=== PATIENT | male | born 1945 | race Caucasian/White ===

== ENCOUNTER 2018-06-17 16:52 | Inpatient (IN) ==
[2018-06-17 17:35] LABS: Basophils % 0.4 % (0.0-0.8); Eosinophils # 0.1 10*3/uL (0.0-0.87); Eosinophils % 1.1 % (0.00-10.9); Hematocrit 29.3 VOL% (42.0-52.0); Hemoglobin 9.7 GM/DL (14.0-18.0); Immature Granulocytes % 0.4 %; Immature Granulocytes Absolute 0.04 #; Lymphocytes # 0.7 10*3/uL (1.4-4.0); Lymphocytes % 6.9 % (21.2-54.2); Mean Corpuscular HGB Conc 33.1 GM/DL (32-36); Mean Corpuscular Hemoglobin 29 PG (27-34); Mean Corpuscular Volume 86.7 FL (87-102); Mean Platelet Volume 9.7 FL (9.6-12.0); Monocytes # 0.9 10*3/uL (0.11-0.8); Monocytes % 8.7 % (1.7-12.7); Neutrophils # 8.2 10*3/uL (1.4-7.4); Neutrophils % 82.5 % (38.7-73.9); Platelet Count 232 T/CUMM (130-400); Red Blood Count 3.38 MC/CUMM (3.8-5.5); Red Cell Distribution Width 13.6 % (9.3-17.3); White Blood Count 9.9 T/CUMM (4-12)
[2018-06-17 17:52] LABS: Apearance,Urine CLEAR (Clear); Bacteria,Urine Occasional /HPF (Few); Bilirubin,Urine Negative (Negative); Blood, Urine Negative (Negative); Glucose,Urine (UA) Negative (Negative); Ketones,Urine Negative (Negative); Mucus,Urine Occasional /LPF (Occasional); Nitrite,Urine Negative (Negative); Protein,Urine Negative; RBC,Urine <1 /HPF (0-4); Squamous Epithelial Cell,Urine Occasional /HPF (0-10); Urine Color Yellow (Yellow); Urine Specific Gravity 1.013 (1.001-1.035); Urine Urobilinogen < 2.0 EU/DL (0.2-1.0); WBC,Urine 2 /HPF (0-6)
[2018-06-17 17:56] LABS: Barbiturates Screen,Urine Negative (Negative); Benzodiazepines Screen,Urine Negative (Negative); Cannabinoid Screen,Urine Negative (Negative); Opiate Screen,Urine Negative (Negative); Phencyclidine Screen,Urine Negative (Negative)
[2018-06-17 17:57] LABS: Albumin 2.9 G/DL (3.4-5.0); Bilirubin,Total 1.1 MG/DL (0.2-1.0); Calcium 8.6 MG/DL (8.5-10.1); Osmolality,Calculated 285.7 MOS/KG (273-304); Potassium 4.3 MMOL/L (3.5-5.1); Thyroid Stimulating Hormone 1.51 uIU/ml (0.358-3.74); Total Protein 6.8 G/DL (6.4-8.3)
[2018-06-17] MEDS ORDERED: ONDANSETRON 4 MG/2 ML VIAL IV PRN ×2 (21:49→21:58)
[2018-06-17] MEDS ORDERED: POLYETHYLENE GLYCOL POWDER 17 GM PACK PO PRN (21:58)
[2018-06-17] MEDS ORDERED: ALUMINUM/MAGNES/SIMETH MAX STR 30 ML UDCUP PO PRN (21:58)
[2018-06-17] MEDS ORDERED: BISACODYL 10 MG SUPP RECTAL PRN (21:58)
[2018-06-17] MEDS ORDERED: SKIN HEALING OINT (AQUAPHOR) 50 GM TUBE TOP PRN (21:58)
[2018-06-17] MEDS ORDERED: ONDANSETRON 4 MG TABLET PO PRN (21:58)
[2018-06-17] MEDS ORDERED: ZINC OXIDE PASTE 113 GM TUBE TOP PRN (21:58)
[2018-06-18] MEDS ORDERED: ZIPRASIDONE 20 MG/1 ML VIAL IM ONE (02:30)
[2018-06-18] MEDS: SODIUM CHLORIDE 0.9% 1,000 ML IV SCH ×2 (03:47→13:59)
[2018-06-18 06:31] LABS: Basophils # 0.1 10*3/uL (0.0-0.2); Basophils % 0.5 % (0.0-0.8); Eosinophils # 0.2 10*3/uL (0.0-0.87); Eosinophils % 1.9 % (0.00-10.9); Hemoglobin 9.7 GM/DL (14.0-18.0); Immature Granulocytes % 0.5 %; Immature Granulocytes Absolute 0.05 #; Lymphocytes # 0.7 10*3/uL (1.4-4.0); Lymphocytes % 6.2 % (21.2-54.2); Mean Corpuscular HGB Conc 31.3 GM/DL (32-36); Mean Corpuscular Hemoglobin 28 PG (27-34); Mean Corpuscular Volume 89.1 FL (87-102); Mean Platelet Volume 9.7 FL (9.6-12.0); Monocytes % 9.2 % (1.7-12.7); Neutrophils # 8.9 10*3/uL (1.4-7.4); Neutrophils % 81.7 % (38.7-73.9); Platelet Count 192 T/CUMM (130-400); Red Blood Count 3.48 MC/CUMM (3.8-5.5); Red Cell Distribution Width 13.4 % (9.3-17.3); White Blood Count 10.9 T/CUMM (4-12)
[2018-06-18 06:43] LABS: INR 1.8; PT Patient Result 18.2 SECS
[2018-06-18 07:09] LABS: Calcium 8.3 MG/DL (8.5-10.1); Osmolality,Calculated 282.7 MOS/KG (273-304); Potassium 4.3 MMOL/L (3.5-5.1)
[2018-06-18] MEDS: PANTOPRAZOLE 40 MG TABLET PO SCH (09:36)
[2018-06-18] MEDS: CLOPIDOGREL 75 MG TABLET PO SCH (09:36)
[2018-06-18] MEDS: MUPIROCIN 2% OINT 22 GM TUBE TOP SCH (09:37)
[2018-06-18] MEDS: SILVER SULFADIAZINE 1% CREAM 25 GM TUBE TOP SCH (10:54)
[2018-06-18] MEDS: LORazepam 2 MG/1 ML VIAL IV PRN (14:56)
[2018-06-18] MEDS ORDERED: WARFARIN 5 MG TABLET PO SCH (18:00)
[2018-06-18] MEDS ORDERED: WARFARIN 3 MG TABLET PO SCH (18:00)
[2018-06-19] MEDS: LORazepam 2 MG/1 ML VIAL IV PRN ×3 (01:24→13:52)
[2018-06-19 06:30] LABS: Basophils % 0.2 % (0.0-0.8); Eosinophils % 0.2 % (0.00-10.9); Hematocrit 30.5 VOL% (42.0-52.0); Hemoglobin 9.8 GM/DL (14.0-18.0); Immature Granulocytes % 0.7 %; Immature Granulocytes Absolute 0.13 #; Lymphocytes # 0.2 10*3/uL (1.4-4.0); Lymphocytes % 1.1 % (21.2-54.2); Mean Corpuscular HGB Conc 32.1 GM/DL (32-36); Mean Corpuscular Hemoglobin 28 PG (27-34); Mean Corpuscular Volume 87.1 FL (87-102); Mean Platelet Volume 9.9 FL (9.6-12.0); Monocytes # 1.2 10*3/uL (0.11-0.8); Monocytes % 6.8 % (1.7-12.7); Neutrophils # 15.9 10*3/uL (1.4-7.4); Platelet Count 174 T/CUMM (130-400); Red Cell Distribution Width 13.5 % (9.3-17.3); White Blood Count 17.5 T/CUMM (4-12)
[2018-06-19 06:34] LABS: INR 1.7; PT Patient Result 17.2 SECS
[2018-06-19 06:53] LABS: Band Neutrophils 3 % (0-10); Eosinophils 1 % (0-10); Hypochromasia 1+; Lymphocytes 1 % (20-55); Platelet Estimate Adequate; Segmented Neutrophils 86 % (50-85); Total Cells Counted 100
[2018-06-19 06:58] LABS: Calcium 8.4 MG/DL (8.5-10.1); Osmolality,Calculated 288.1 MOS/KG (273-304)
[2018-06-19] MEDS: AMPICILLIN INJ 2,000 MG in SODIUM CHLORIDE 0.9% 100 ML IV SCH ×3 (10:00→23:13)
[2018-06-19] MEDS: PANTOPRAZOLE 40 MG TABLET PO SCH (10:06)
[2018-06-19] MEDS: MUPIROCIN 2% OINT 22 GM TUBE TOP SCH (10:08)
[2018-06-19] MEDS: cefTRIAXone 2,000 MG in SYRINGE 1 EACH IV SCH ×2 (10:11→22:29)
[2018-06-19] MEDS: CLOPIDOGREL 75 MG TABLET PO SCH (10:16)
[2018-06-19] MEDS ORDERED: ZINC OXIDE PASTE 113 GM TUBE TOP SCH (14:30)
[2018-06-19] MEDS: SILVER SULFADIAZINE 1% CREAM 25 GM TUBE TOP SCH (17:03)
[2018-06-19] MEDS: ACYCLOVIR INJ 750 MG in SODIUM CHLORIDE 0.9% 250 ML IV SCH (17:41)
[2018-06-19] MEDS: WARFARIN 10 MG TABLET PO SCH (18:02)
[2018-06-19] MEDS: SODIUM CHLORIDE 0.9% 1,000 ML IV SCH ×2 (22:17)
[2018-06-20] MEDS: ACYCLOVIR INJ 750 MG in SODIUM CHLORIDE 0.9% 250 ML IV SCH ×3 (02:10→18:00)
[2018-06-20] MEDS: LORazepam 2 MG/1 ML VIAL IV PRN ×2 (02:21→22:11)
[2018-06-20] MEDS: AMPICILLIN INJ 2,000 MG in SODIUM CHLORIDE 0.9% 100 ML IV SCH ×4 (04:47→22:49)
[2018-06-20 04:49] LABS: INR 2.1
[2018-06-20 04:52] LABS: PT Patient Result 21.5 SECS
[2018-06-20] MEDS: SODIUM CHLORIDE 0.9% 1,000 ML IV SCH ×2 (05:35→15:31)
[2018-06-20] MEDS: CLOPIDOGREL 75 MG TABLET PO SCH (09:26)
[2018-06-20] MEDS: PANTOPRAZOLE 40 MG TABLET PO SCH (09:26)
[2018-06-20] MEDS: CARVEDILOL 12.5 MG TABLET PO SCH (09:30)
[2018-06-20] MEDS: cefTRIAXone 2,000 MG in SYRINGE 1 EACH IV SCH ×2 (10:39→22:09)
[2018-06-20] MEDS: DILTIAZEM 60 MG TABLET PO SCH ×3 (12:32→22:06)
[2018-06-20 13:06] LABS: Troponin I 0.023 NG/ML (0.00-0.045)
[2018-06-20] MEDS: SILVER SULFADIAZINE 1% CREAM 25 GM TUBE TOP SCH (13:55)
[2018-06-20] MEDS: MUPIROCIN 2% OINT 22 GM TUBE TOP SCH (13:55)
[2018-06-20] MEDS ORDERED: DILTIAZEM 90 MG TABLET PO SCH (15:00)
[2018-06-20 16:45] LABS: Troponin I 0.019 NG/ML (0.00-0.045)
[2018-06-20] MEDS: WARFARIN 10 MG TABLET PO SCH (18:00)
[2018-06-20 19:13] LABS: Troponin I 0.019 NG/ML (0.00-0.045)
[2018-06-20] MEDS: CARVEDILOL 25 MG TABLET PO SCH (22:09)
[2018-06-21] MEDS: SODIUM CHLORIDE 0.9% 1,000 ML IV SCH ×4 (01:21→14:06)
[2018-06-21] MEDS: ACYCLOVIR INJ 750 MG in SODIUM CHLORIDE 0.9% 250 ML IV SCH ×2 (02:34→10:26)
[2018-06-21 04:04] LABS: INR 4.7
[2018-06-21 04:08] LABS: Calcium 7.8 MG/DL (8.5-10.1)
[2018-06-21 04:09] LABS: Basophils % 0.2 % (0.0-0.8); Eosinophils # 0.3 10*3/uL (0.0-0.87); Hematocrit 30.6 VOL% (42.0-52.0); Hemoglobin 9.1 GM/DL (14.0-18.0); Immature Granulocytes % 0.5 %; Immature Granulocytes Absolute 0.03 #; Lymphocytes # 0.3 10*3/uL (1.4-4.0); Mean Corpuscular HGB Conc 29.7 GM/DL (32-36); Mean Corpuscular Hemoglobin 28 PG (27-34); Mean Corpuscular Volume 94.4 FL (87-102); Mean Platelet Volume 10.1 FL (9.6-12.0); Monocytes # 0.5 10*3/uL (0.11-0.8); Monocytes % 8.2 % (1.7-12.7); Neutrophils # 4.3 10*3/uL (1.4-7.4); Neutrophils % 79.1 % (38.7-73.9); Osmolality,Calculated 282.4 MOS/KG (273-304); Platelet Count 106 T/CUMM (130-400); Potassium 3.5 MMOL/L (3.5-5.1); Red Blood Count 3.24 MC/CUMM (3.8-5.5); Red Cell Distribution Width 13.7 % (9.3-17.3); White Blood Count 5.5 T/CUMM (4-12)
[2018-06-21 04:12] LABS: PT Patient Result 47.1 SECS
[2018-06-21] MEDS: AMPICILLIN INJ 2,000 MG in SODIUM CHLORIDE 0.9% 100 ML IV SCH ×2 (04:44→10:15)
[2018-06-21 06:08] LABS: Risk Ratio 5.47; VLDL CHOLESTEROL 35.6 MG/DL
[2018-06-21 06:23] LABS: Calcium 7.8 MG/DL (8.5-10.1); Osmolality,Calculated 286.1 MOS/KG (273-304); Potassium 3.5 MMOL/L (3.5-5.1)
[2018-06-21] MEDS: CLOPIDOGREL 75 MG TABLET PO SCH (09:31)
[2018-06-21] MEDS: DILTIAZEM 60 MG TABLET PO SCH ×4 (09:31→23:15)
[2018-06-21] MEDS: PANTOPRAZOLE 40 MG TABLET PO SCH (09:31)
[2018-06-21] MEDS: CARVEDILOL 12.5 MG TABLET PO SCH (09:33)
[2018-06-21] MEDS: SILVER SULFADIAZINE 1% CREAM 25 GM TUBE TOP SCH (09:34)
[2018-06-21] MEDS: MUPIROCIN 2% OINT 22 GM TUBE TOP SCH (09:34)
[2018-06-21] MEDS: cefTRIAXone 2,000 MG in SYRINGE 1 EACH IV SCH ×2 (09:40→14:09)
[2018-06-21] MEDS ORDERED: VANCOMYCIN INJ 1,000 MG in SODIUM CHLORIDE 0.9% 250 ML IV SCH (11:00)
[2018-06-21] MEDS ORDERED: TUBERCULIN SKIN TEST 0.1 ML SYRINGE INTRADERM ONE (11:20)
[2018-06-21] MEDS: LORazepam 2 MG/1 ML VIAL IV PRN (20:15)
[2018-06-21] MEDS: CARVEDILOL 25 MG TABLET PO SCH (23:16)
[2018-06-21] MEDS ORDERED: HALOPERIDOL 5 MG/ML AMP IM ONE (23:59)
[2018-06-22] MEDS: SODIUM CHLORIDE 0.9% 1,000 ML IV SCH ×2 (04:41→14:51)
[2018-06-22 05:07] LABS: Basophils % 0.2 % (0.0-0.8); Eosinophils # 0.4 10*3/uL (0.0-0.87); Eosinophils % 5.8 % (0.00-10.9); Hematocrit 26.1 VOL% (42.0-52.0); Hemoglobin 8.3 GM/DL (14.0-18.0); Immature Granulocytes % 0.8 %; Immature Granulocytes Absolute 0.05 #; Lymphocytes # 0.6 10*3/uL (1.4-4.0); Lymphocytes % 9.1 % (21.2-54.2); Mean Corpuscular HGB Conc 31.8 GM/DL (32-36); Mean Corpuscular Hemoglobin 28 PG (27-34); Mean Corpuscular Volume 88.5 FL (87-102); Mean Platelet Volume 10.5 FL (9.6-12.0); Monocytes # 0.6 10*3/uL (0.11-0.8); Monocytes % 9.4 % (1.7-12.7); Neutrophils # 4.6 10*3/uL (1.4-7.4); Neutrophils % 74.7 % (38.7-73.9); Platelet Count 122 T/CUMM (130-400); Red Blood Count 2.95 MC/CUMM (3.8-5.5); Red Cell Distribution Width 13.5 % (9.3-17.3); White Blood Count 6.2 T/CUMM (4-12)
[2018-06-22 05:25] LABS: PT Patient Result 54.1 SECS
[2018-06-22 05:28] LABS: INR 5.5
[2018-06-22 05:52] LABS: Calcium 7.9 MG/DL (8.5-10.1); Osmolality,Calculated 285.8 MOS/KG (273-304); Potassium 3.6 MMOL/L (3.5-5.1)
[2018-06-22] MEDS: LORazepam 2 MG/1 ML VIAL IV PRN (05:58)
[2018-06-22] MEDS: MUPIROCIN 2% OINT 22 GM TUBE TOP SCH (11:03)
[2018-06-22] MEDS: SILVER SULFADIAZINE 1% CREAM 25 GM TUBE TOP SCH (11:04)
[2018-06-22] MEDS: CARVEDILOL 12.5 MG TABLET PO SCH (12:58)
[2018-06-22] MEDS: DILTIAZEM 60 MG TABLET PO SCH ×2 (12:58)
[2018-06-22] MEDS: PANTOPRAZOLE 40 MG TABLET PO SCH (12:59)
[2018-06-22] MEDS: CLOPIDOGREL 75 MG TABLET PO SCH (12:59)
[2018-06-22] MEDS: cefTRIAXone 2,000 MG in SYRINGE 1 EACH IV SCH (13:15)
[2018-06-22] MEDS ORDERED: DILTIAZEM 60 MG TABLET PO ONE (13:50)
[2018-06-22] MEDS: DILTIAZEM CD 180 MG CAPSULE PO SCH (21:19)
[2018-06-22] MEDS: CARVEDILOL 25 MG TABLET PO SCH (21:19)
[2018-06-23 04:45] LABS: Basophils % 0.3 % (0.0-0.8); Eosinophils # 0.3 10*3/uL (0.0-0.87); Hematocrit 29.9 VOL% (42.0-52.0); Hemoglobin 9.9 GM/DL (14.0-18.0); Immature Granulocytes % 1.1 %; Immature Granulocytes Absolute 0.08 #; Lymphocytes # 0.7 10*3/uL (1.4-4.0); Lymphocytes % 8.9 % (21.2-54.2); Mean Corpuscular HGB Conc 33.1 GM/DL (32-36); Mean Corpuscular Hemoglobin 28 PG (27-34); Mean Corpuscular Volume 85.7 FL (87-102); Mean Platelet Volume 10.2 FL (9.6-12.0); Monocytes # 0.6 10*3/uL (0.11-0.8); Monocytes % 8.5 % (1.7-12.7); Neutrophils # 5.6 10*3/uL (1.4-7.4); Neutrophils % 77.2 % (38.7-73.9); Platelet Count 130 T/CUMM (130-400); Red Blood Count 3.49 MC/CUMM (3.8-5.5); Red Cell Distribution Width 13.5 % (9.3-17.3); White Blood Count 7.3 T/CUMM (4-12)
[2018-06-23 05:04] LABS: Osmolality,Calculated 277.3 MOS/KG (273-304); Potassium 3.2 MMOL/L (3.5-5.1)
[2018-06-23 05:10] LABS: PT Patient Result 52.2 SECS
[2018-06-23 05:11] LABS: INR 5.3
[2018-06-23] MEDS: PANTOPRAZOLE 40 MG TABLET PO SCH (10:41)
[2018-06-23] MEDS: DILTIAZEM CD 180 MG CAPSULE PO SCH ×2 (10:42→22:31)
[2018-06-23] MEDS: CLOPIDOGREL 75 MG TABLET PO SCH (10:42)
[2018-06-23] MEDS: CARVEDILOL 25 MG TABLET PO SCH ×2 (10:42→22:25)
[2018-06-23] MEDS: cefTRIAXone 2,000 MG in SYRINGE 1 EACH IV SCH (14:19)
[2018-06-23] MEDS: VANCOMYCIN INJ 1,000 MG in SODIUM CHLORIDE 0.9% 250 ML IV SCH ×2 (14:23→22:25)
[2018-06-23] MEDS: SILVER SULFADIAZINE 1% CREAM 25 GM TUBE TOP SCH (15:29)
[2018-06-23] MEDS: MUPIROCIN 2% OINT 22 GM TUBE TOP SCH (15:31)
[2018-06-23] MEDS: BISOPROLOL 5 MG TABLET PO SCH (22:24)
[2018-06-24 02:50] LABS: Basophils % 0.1 % (0.0-0.8); Eosinophils # 0.3 10*3/uL (0.0-0.87); Eosinophils % 3.1 % (0.00-10.9); Hematocrit 28.3 VOL% (42.0-52.0); Hemoglobin 9.3 GM/DL (14.0-18.0); Immature Granulocytes % 1.3 %; Immature Granulocytes Absolute 0.11 #; Lymphocytes % 12.5 % (21.2-54.2); Mean Corpuscular HGB Conc 32.9 GM/DL (32-36); Mean Corpuscular Hemoglobin 28 PG (27-34); Mean Platelet Volume 10.4 FL (9.6-12.0); Monocytes # 0.8 10*3/uL (0.11-0.8); Monocytes % 9.1 % (1.7-12.7); Neutrophils # 6.1 10*3/uL (1.4-7.4); Neutrophils % 73.9 % (38.7-73.9); Platelet Count 155 T/CUMM (130-400); Red Blood Count 3.33 MC/CUMM (3.8-5.5); Red Cell Distribution Width 13.6 % (9.3-17.3); White Blood Count 8.3 T/CUMM (4-12)
[2018-06-24 03:03] LABS: PT Patient Result 63.5 SECS
[2018-06-24 03:04] LABS: INR 6.4
[2018-06-24 03:18] LABS: Osmolality,Calculated 281.1 MOS/KG (273-304)
[2018-06-24 03:26] LABS: Osmolality,Calculated 281.1 MOS/KG (273-304); Potassium 3.1 MMOL/L (3.5-5.1)
[2018-06-24] MEDS: VANCOMYCIN INJ 1,000 MG in SODIUM CHLORIDE 0.9% 250 ML IV SCH ×2 (06:37→15:49)
[2018-06-24] MEDS: POTASSIUM CHLORIDE 20 MEQ TABLET PO PRN ×4 (09:19→17:20)
[2018-06-24] MEDS: PANTOPRAZOLE 40 MG TABLET PO SCH (09:19)
[2018-06-24] MEDS: CARVEDILOL 25 MG TABLET PO SCH ×2 (09:19→20:40)
[2018-06-24] MEDS: CLOPIDOGREL 75 MG TABLET PO SCH (09:19)
[2018-06-24] MEDS: BISOPROLOL 5 MG TABLET PO SCH ×2 (09:19→20:40)
[2018-06-24] MEDS: MUPIROCIN 2% OINT 22 GM TUBE TOP SCH (09:20)
[2018-06-24] MEDS: SILVER SULFADIAZINE 1% CREAM 25 GM TUBE TOP SCH (09:20)
[2018-06-24] MEDS: DILTIAZEM CD 180 MG CAPSULE PO SCH ×2 (09:20→20:40)
[2018-06-24] MEDS: cefTRIAXone 2,000 MG in SYRINGE 1 EACH IV SCH (14:50)
[2018-06-25] MEDS: VANCOMYCIN INJ 1,000 MG in SODIUM CHLORIDE 0.9% 250 ML IV SCH ×3 (01:29→17:30)
[2018-06-25 04:30] LABS: Basophils % 0.3 % (0.0-0.8); Eosinophils # 0.2 10*3/uL (0.0-0.87); Eosinophils % 2.6 % (0.00-10.9); Hematocrit 28.3 VOL% (42.0-52.0); Hemoglobin 9.1 GM/DL (14.0-18.0); Immature Granulocytes % 1.4 %; Immature Granulocytes Absolute 0.12 #; Lymphocytes # 0.8 10*3/uL (1.4-4.0); Lymphocytes % 9.3 % (21.2-54.2); Mean Corpuscular HGB Conc 32.2 GM/DL (32-36); Mean Corpuscular Hemoglobin 28 PG (27-34); Mean Corpuscular Volume 88.2 FL (87-102); Mean Platelet Volume 10.4 FL (9.6-12.0); Monocytes # 0.8 10*3/uL (0.11-0.8); Monocytes % 9.6 % (1.7-12.7); Neutrophils # 6.6 10*3/uL (1.4-7.4); Neutrophils % 76.8 % (38.7-73.9); Platelet Count 173 T/CUMM (130-400); Red Blood Count 3.21 MC/CUMM (3.8-5.5); Red Cell Distribution Width 13.7 % (9.3-17.3); White Blood Count 8.6 T/CUMM (4-12)
[2018-06-25 04:44] LABS: INR 2.9
[2018-06-25 04:46] LABS: PT Patient Result 29.7 SECS
[2018-06-25 04:59] LABS: Calcium 7.8 MG/DL (8.5-10.1); Osmolality,Calculated 284.8 MOS/KG (273-304); Potassium 3.7 MMOL/L (3.5-5.1)
[2018-06-25] MEDS: DILTIAZEM CD 180 MG CAPSULE PO SCH ×2 (10:10→21:05)
[2018-06-25] MEDS: CARVEDILOL 25 MG TABLET PO SCH ×2 (10:11→21:05)
[2018-06-25] MEDS: CLOPIDOGREL 75 MG TABLET PO SCH (10:11)
[2018-06-25] MEDS: PANTOPRAZOLE 40 MG TABLET PO SCH (10:12)
[2018-06-25] MEDS: MUPIROCIN 2% OINT 22 GM TUBE TOP SCH (10:12)
[2018-06-25] MEDS: SILVER SULFADIAZINE 1% CREAM 25 GM TUBE TOP SCH (10:12)
[2018-06-25] MEDS: BISOPROLOL 5 MG TABLET PO SCH ×2 (10:12→21:05)
[2018-06-25] MEDS: cefTRIAXone 2,000 MG in SYRINGE 1 EACH IV SCH (13:26)
[2018-06-25] MEDS ORDERED: MAGNESIUM SULF RIDER 2 GM in PREMIX 1 EACH IV ONE (20:51)
[2018-06-25] MEDS: MAGNESIUM CHLORIDE 64 MG TABLET PO SCH (21:13)
[2018-06-25] MEDS: LORazepam 2 MG/1 ML VIAL IV PRN (21:13)
[2018-06-26] MEDS: VANCOMYCIN INJ 1,000 MG in SODIUM CHLORIDE 0.9% 250 ML IV SCH ×3 (02:54→17:53)
[2018-06-26 04:03] LABS: Basophils % 0.4 % (0.0-0.8); Eosinophils # 0.2 10*3/uL (0.0-0.87); Eosinophils % 2.4 % (0.00-10.9); Hematocrit 30.5 VOL% (42.0-52.0); Hemoglobin 9.9 GM/DL (14.0-18.0); Immature Granulocytes % 1.5 %; Immature Granulocytes Absolute 0.12 #; Lymphocytes # 0.8 10*3/uL (1.4-4.0); Lymphocytes % 10.3 % (21.2-54.2); Mean Corpuscular HGB Conc 32.5 GM/DL (32-36); Mean Corpuscular Hemoglobin 28 PG (27-34); Mean Corpuscular Volume 86.6 FL (87-102); Mean Platelet Volume 10.1 FL (9.6-12.0); Monocytes # 0.9 10*3/uL (0.11-0.8); Monocytes % 11.7 % (1.7-12.7); Neutrophils # 5.8 10*3/uL (1.4-7.4); Neutrophils % 73.7 % (38.7-73.9); Platelet Count 161 T/CUMM (130-400); Red Blood Count 3.52 MC/CUMM (3.8-5.5); White Blood Count 7.8 T/CUMM (4-12)
[2018-06-26 04:19] LABS: INR 1.8; PT Patient Result 18.4 SECS
[2018-06-26 04:22] LABS: Calcium 8.6 MG/DL (8.5-10.1); Osmolality,Calculated 281.1 MOS/KG (273-304); Potassium 3.4 MMOL/L (3.5-5.1)
[2018-06-26] MEDS ORDERED: DILTIAZEM CD 180 MG CAPSULE PO SCH (10:06)
[2018-06-26] MEDS: PANTOPRAZOLE 40 MG TABLET PO SCH (10:09)
[2018-06-26] MEDS: MAGNESIUM CHLORIDE 64 MG TABLET PO SCH ×2 (10:09→20:58)
[2018-06-26] MEDS: POTASSIUM CHLORIDE 20 MEQ TABLET PO PRN (10:10)
[2018-06-26] MEDS: CLOPIDOGREL 75 MG TABLET PO SCH (10:10)
[2018-06-26] MEDS: CARVEDILOL 25 MG TABLET PO SCH ×2 (10:10→20:57)
[2018-06-26] MEDS: BISOPROLOL 5 MG TABLET PO SCH (10:15)
[2018-06-26] MEDS: DILTIAZEM CD 180 MG CAPSULE PO SCH (10:43)
[2018-06-26] MEDS: DILTIAZEM CD 240 MG CAPSULE PO SCH ×2 (10:58→20:58)
[2018-06-26] MEDS: SILVER SULFADIAZINE 1% CREAM 25 GM TUBE TOP SCH (14:12)
[2018-06-26] MEDS: cefTRIAXone 2,000 MG in SYRINGE 1 EACH IV SCH (14:12)
[2018-06-26] MEDS: MUPIROCIN 2% OINT 22 GM TUBE TOP SCH (14:12)
[2018-06-26] MEDS: ACETAMINOPHEN 325 MG TABLET PO PRN (17:53)
[2018-06-26] MEDS ORDERED: WARFARIN 2.5 MG TABLET PO SCH (18:00)
[2018-06-26] MEDS: WARFARIN 2 MG TABLET PO SCH (18:18)
[2018-06-27 05:11] LABS: Basophils % 0.5 % (0.0-0.8); Eosinophils # 0.2 10*3/uL (0.0-0.87); Eosinophils % 1.7 % (0.00-10.9); Hematocrit 32.1 VOL% (42.0-52.0); Hemoglobin 10.6 GM/DL (14.0-18.0); Immature Granulocytes % 1.4 %; Immature Granulocytes Absolute 0.12 #; Lymphocytes # 1.1 10*3/uL (1.4-4.0); Lymphocytes % 12.5 % (21.2-54.2); Mean Corpuscular Hemoglobin 29 PG (27-34); Mean Corpuscular Volume 87.2 FL (87-102); Mean Platelet Volume 10.1 FL (9.6-12.0); Monocytes % 11.1 % (1.7-12.7); Neutrophils # 6.3 10*3/uL (1.4-7.4); Neutrophils % 72.8 % (38.7-73.9); Platelet Count 187 T/CUMM (130-400); Red Blood Count 3.68 MC/CUMM (3.8-5.5); Red Cell Distribution Width 14.3 % (9.3-17.3); White Blood Count 8.6 T/CUMM (4-12)
[2018-06-27 05:19] LABS: INR 1.5; PT Patient Result 15.4 SECS
[2018-06-27 05:34] LABS: Calcium 8.6 MG/DL (8.5-10.1); Potassium 3.5 MMOL/L (3.5-5.1)
[2018-06-27] MEDS: VANCOMYCIN INJ 1,000 MG in SODIUM CHLORIDE 0.9% 250 ML IV SCH ×2 (05:40→18:09)
[2018-06-27] MEDS: MAGNESIUM CHLORIDE 64 MG TABLET PO SCH ×2 (09:13→20:56)
[2018-06-27] MEDS: DILTIAZEM CD 240 MG CAPSULE PO SCH ×2 (09:14→20:56)
[2018-06-27] MEDS: CARVEDILOL 25 MG TABLET PO SCH ×2 (09:14→20:55)
[2018-06-27] MEDS: PANTOPRAZOLE 40 MG TABLET PO SCH (09:14)
[2018-06-27] MEDS: POTASSIUM CHLORIDE 20 MEQ TABLET PO PRN (09:14)
[2018-06-27] MEDS: CLOPIDOGREL 75 MG TABLET PO SCH (09:14)
[2018-06-27] MEDS: MUPIROCIN 2% OINT 22 GM TUBE TOP SCH (14:03)
[2018-06-27] MEDS: SILVER SULFADIAZINE 1% CREAM 25 GM TUBE TOP SCH (14:03)
[2018-06-27] MEDS: cefTRIAXone 2,000 MG in SYRINGE 1 EACH IV SCH (14:12)
[2018-06-27] MEDS: ACETAMINOPHEN 325 MG TABLET PO PRN (16:31)
[2018-06-27] MEDS: WARFARIN 2 MG TABLET PO SCH (18:08)
[2018-06-28 03:06] LABS: Basophils % 0.4 % (0.0-0.8); Eosinophils # 0.3 10*3/uL (0.0-0.87); Eosinophils % 3.7 % (0.00-10.9); Hematocrit 30.1 VOL% (42.0-52.0); Hemoglobin 9.7 GM/DL (14.0-18.0); Immature Granulocytes % 1.4 %; Lymphocytes # 1.1 10*3/uL (1.4-4.0); Lymphocytes % 15.6 % (21.2-54.2); Mean Corpuscular HGB Conc 32.2 GM/DL (32-36); Mean Corpuscular Hemoglobin 28 PG (27-34); Mean Corpuscular Volume 87.5 FL (87-102); Mean Platelet Volume 9.9 FL (9.6-12.0); Monocytes # 0.8 10*3/uL (0.11-0.8); Monocytes % 10.8 % (1.7-12.7); Neutrophils # 4.8 10*3/uL (1.4-7.4); Neutrophils % 68.1 % (38.7-73.9); Platelet Count 192 T/CUMM (130-400); Red Blood Count 3.44 MC/CUMM (3.8-5.5); Red Cell Distribution Width 14.6 % (9.3-17.3); White Blood Count 7.1 T/CUMM (4-12)
[2018-06-28 03:16] LABS: INR 1.4; PT Patient Result 14.1 SECS
[2018-06-28 03:34] LABS: Calcium 8.6 MG/DL (8.5-10.1); Potassium 3.8 MMOL/L (3.5-5.1)
[2018-06-28] MEDS: VANCOMYCIN INJ 1,000 MG in SODIUM CHLORIDE 0.9% 250 ML IV SCH ×2 (06:00→17:38)
[2018-06-28] MEDS: CARVEDILOL 25 MG TABLET PO SCH ×2 (09:01→21:28)
[2018-06-28] MEDS: DILTIAZEM CD 240 MG CAPSULE PO SCH ×2 (09:02→21:30)
[2018-06-28] MEDS: CLOPIDOGREL 75 MG TABLET PO SCH (09:02)
[2018-06-28] MEDS: MAGNESIUM CHLORIDE 64 MG TABLET PO SCH ×2 (09:02→21:28)
[2018-06-28] MEDS: MUPIROCIN 2% OINT 22 GM TUBE TOP SCH (09:02)
[2018-06-28] MEDS: PANTOPRAZOLE 40 MG TABLET PO SCH (09:02)
[2018-06-28] MEDS: SILVER SULFADIAZINE 1% CREAM 25 GM TUBE TOP SCH (09:03)
[2018-06-28] MEDS: POTASSIUM CHLORIDE 20 MEQ TABLET PO PRN (09:05)
[2018-06-28] MEDS ORDERED: WARFARIN 2 MG TABLET PO SCH (10:37)
[2018-06-28] MEDS: ASPIRIN EC 81 MG TABLET PO SCH (11:38)
[2018-06-28] MEDS: cefTRIAXone 2,000 MG in SYRINGE 1 EACH IV SCH (14:35)
[2018-06-29] MEDS: VANCOMYCIN INJ 1,000 MG in SODIUM CHLORIDE 0.9% 250 ML IV SCH (05:35)
[2018-06-29 05:53] LABS: Basophils # 0.1 10*3/uL (0.0-0.2); Basophils % 0.6 % (0.0-0.8); Eosinophils # 0.2 10*3/uL (0.0-0.87); Eosinophils % 2.3 % (0.00-10.9); Hematocrit 28.6 VOL% (42.0-52.0); Hemoglobin 9.5 GM/DL (14.0-18.0); Immature Granulocytes % 0.8 %; Immature Granulocytes Absolute 0.07 #; Lymphocytes # 0.9 10*3/uL (1.4-4.0); Lymphocytes % 11.1 % (21.2-54.2); Mean Corpuscular HGB Conc 33.2 GM/DL (32-36); Mean Corpuscular Hemoglobin 29 PG (27-34); Mean Corpuscular Volume 85.9 FL (87-102); Mean Platelet Volume 9.9 FL (9.6-12.0); Monocytes # 0.7 10*3/uL (0.11-0.8); Monocytes % 8.1 % (1.7-12.7); Neutrophils # 6.5 10*3/uL (1.4-7.4); Neutrophils % 77.1 % (38.7-73.9); Platelet Count 200 T/CUMM (130-400); Red Blood Count 3.33 MC/CUMM (3.8-5.5); Red Cell Distribution Width 14.3 % (9.3-17.3); White Blood Count 8.4 T/CUMM (4-12)
[2018-06-29 05:58] LABS: INR 1.2
[2018-06-29 06:04] LABS: Calcium 8.5 MG/DL (8.5-10.1); Osmolality,Calculated 281.3 MOS/KG (273-304)
[2018-06-29] MEDS: SILVER SULFADIAZINE 1% CREAM 25 GM TUBE TOP SCH (08:44)
[2018-06-29] MEDS: MUPIROCIN 2% OINT 22 GM TUBE TOP SCH (08:44)
[2018-06-29] MEDS: CLOPIDOGREL 75 MG TABLET PO SCH (08:45)
[2018-06-29] MEDS: MAGNESIUM CHLORIDE 64 MG TABLET PO SCH (08:45)
[2018-06-29] MEDS: DILTIAZEM CD 240 MG CAPSULE PO SCH (08:46)
[2018-06-29] MEDS: PANTOPRAZOLE 40 MG TABLET PO SCH (08:46)
[2018-06-29] MEDS: CARVEDILOL 25 MG TABLET PO SCH (08:46)
[2018-06-29] MEDS: ASPIRIN EC 81 MG TABLET PO SCH (08:46)
[2018-06-29 12:19] VITALS: BP 126/53
== END 2018-06-29 13:00 | disposition swing bed (61) | DRG 872 ==
LOC: EDUNIT# → EDBD → N.ED 16:52 → N.EDINP 21:49 → SUATTDRO 21:50 → N.5E 23:31 → N.TELEN 06-19 21:42 → N.TELES 06-19 21:42
PROVIDERS: ATTEND Hospitalist